=== PATIENT | male | born 1980 | race Caucasian/White ===

== ENCOUNTER 2020-07-26 07:15 | Day surgery (SDC) | payer BC ==
[~2020-07-26] VITALS: Ht 172.7 cm; Wt 94.5 kg
[~2020-07-26 07:15] MED LIST: ADVIL200 MG NG
--- NOTE | 2020-07-26 08:49 | NUR ---
07/26/20 0849 Aisha Self 0845- PT TO PACU IN SF POSITION. EYES OPEN. DENIES PAIN NAUSEA OR DIZZINESS. BREATHING EASY AND UNLABORED. SPO2 97% ON 2 LITERS NC. VSS. PT ENCOURAGED TO PASS GAS.
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
--- NOTE | 2020-07-30 11:38 | PATH ---
[facility] [address] [place], [place] [address] Signed SPECIMEN(S): A TERMINAL ILEUM SPECIMEN(S): B COLON BIOPSY SPECIMEN(S): C COLON POLYP AT 22 CM SPECIMEN SOURCE: A. TERMINAL ILEUM B. COLON BIOPSY C. COLON POLYP AT 22 CM CLINICAL HISTORY: Screening. Post: External hemorrhoids, random colon biopsy. Colon polyp x1, internal hemorrhoids. MICROSCOPIC DESCRIPTION: Histologic sections of all submitted blocks are examined by light microscopy. These findings, together with the gross examination, support the pathologic diagnosis. FINAL PATHOLOGIC DIAGNOSIS: A. Terminal ileum, biopsy: - Ileal mucosa with no histopathologic abnormality. - Negative for active inflammation or granulomata. - Negative for dysplasia or malignancy. B. Colon, random, biopsy: - Colonic mucosa with no histopathologic abnormality. - Negative for active, chronic, or microscopic colitis. - Negative for dysplasia or malignancy. C. Colon, polyp at 22 cm, polypectomy: - Fragments of tubular adenoma. - Negative for high-grade dysplasia or malignancy. NAL:cml:C2NR GROSS DESCRIPTION: Three specimens are received in three containers, labeled "Kiel Dutta." A. The specimen, labeled "Kiel Dutta, #1," and designated on the requisition "terminal ileum biopsy," is received in formalin and consists of two fong soft tissue fragments that measure 0.4 and 0.8 cm in greatest dimension. The specimen is entirely submitted in cassette (A1). B. The specimen, labeled "Kiel Dutta, #2," and designated on the requisition "random colon biopsy," is received in formalin and consists of four fong soft tissue fragments that measure 0.3 to 0.7 PATIENT NAME: KIEL DUTTA PATHOLOGY DATE OF : 76 REPORT #: [id number] PHYSICIAN: JITENDRA PATHOLOGY PCP: JOHN TY PA-C REPORT IS CONFIDENTIAL AND NOT TO BE RELEASED WITHOUT AUTHORIZATION [facility] [address] [place] [address] Signed cm in greatest dimension. The specimen is entirely submitted in cassette (B1). C. The specimen, labeled "Kiel Dutta, #3," and designated on the requisition "colon polyp at 22 cm," is received in formalin and consists of four fong soft tissue fragments that measure 0.3 to 0.4 cm in greatest dimension. The specimen is entirely submitted in cassette (C1). FB (under the direct supervision of a pathologist) The Gross Description was prepared using a voice recognition system. The report was reviewed for accuracy; however, sound-alike word errors, addition and/or deletions may occur. If there is any question about this report, please contact Client Services. PERFORMING LABORATORY: The technical component was performed by [facility], [address] [place] [address] ([employer] Operator: Nhi Siddiqui MD; CLIA# [id number]). Professional interpretation was performed by [facility], [address] [address] (CLIA# [id number]). Diagnostician: Corinna Tesfaye MD Pathologist Electronically Signed 07/30/2020 Copies: ~ PATIENT NAME: KIEL DUTTA PATHOLOGY DATE OF : 76 REPORT #: [id number] PHYSICIAN: JITENDRA PATHOLOGY PCP: JOHN TY PA-C REPORT IS CONFIDENTIAL AND NOT TO BE RELEASED WITHOUT AUTHORIZATION
== END 2020-07-26 09:10 | disposition home or self-care (01) ==
LOC: DS 07:15 → OPS 07:15 → DS 09:00 → OPS 09:00
PROVIDERS: ATTEND Colon & Rectal Surgery
PROC: 0DBE8ZZ Excision of Large Intestine, Via Natural or Artificial Opening Endoscopic (ICD-10-PCS; 2020-07-26)
PROC: 0DBB8ZZ Excision of Ileum, Via Natural or Artificial Opening Endoscopic (ICD-10-PCS; principal; 2020-07-26 08:00)
DX: D12.6 Benign neoplasm of colon, unspecified (principal); K64.4 Residual hemorrhoidal skin tags; K64.8 Other hemorrhoids; E78.5 Hyperlipidemia, unspecified; G47.00 Insomnia, unspecified; F17.210 Nicotine dependence, cigarettes, uncomplicated
CPT/HCPCS: 99153; G0500; J2250; J3010; J7121